=== PATIENT | female | born 1985 | race African-American/Black ===

== ENCOUNTER 2017-08-02 17:34 | Emergency (ER) | payer MEDICAID ==
[~2017-08-02] VITALS: Ht 167.6 cm; Wt 77.1 kg
--- NOTE | 2017-08-02 17:36 | NUR ---
PT BIBRA TO ER BED 10. C/O COUGH AND CONGESTION TRIGGERING BACK PAIN X TODAY. PT DENIES FALL. GOWNED AND PLACED ON MONITOR. NAD NOTED. AWAITING MD MATTA.
--- NOTE | 2017-08-02 17:50 | NUR ---
IRMA FUENTES AT BEDSIDE FOR EVAL.
--- NOTE | 2017-08-02 17:56 | NUR ---
RT AT BEDSIDE FOR BREATING TREATMENT.
[2017-08-02] MEDS ORDERED: IPRATROPIUM NEB FS 0.5 MG/2.5 ML AMPUL.NEB ONE (17:58)
[2017-08-02] MEDS ORDERED: ALBUTEROL FS 2.5 MG/3 ML VIAL.NEB ONE (17:58)
[2017-08-02] MEDS ORDERED: ALBUTEROL FS 2.5 MG/3 ML VIAL.NEB NEB ONE (18:00)
[2017-08-02] MEDS ORDERED: IPRATROPIUM NEB FS 0.5 MG/2.5 ML AMPUL.NEB NEB ONE (18:00)
[2017-08-02] MEDS ORDERED: DEXAMETHASONE SOD PHOSPHATE 4 MG/ML VIAL IM ONE (18:00)
--- NOTE | 2017-08-02 18:06 | NUR ---
RADIOLOGY AT BEDSIDE FOR CHEST XRAY.
[2017-08-02] MEDS ORDERED: DEXAMETHASONE SOD PHOSPHATE 10 MG/ML VIAL ONE (18:07)
--- NOTE | 2017-08-02 18:40 | NUR ---
PT IS REFUSING TO LEAVE ED. DEMANDING PAIN MEDICATION. IRMA FUENTES AWARE.
[2017-08-02] MEDS ORDERED: IBUPROFEN 400 MG TABLET ONE (18:42)
--- NOTE | 2017-08-02 18:51 | NUR ---
Patient discharged to home in stable condition. Written and verbal after care instructions given. Patient verbalizes understanding of instruction.
[2017-08-02 18:53] VITALS: BP 136/67
[2017-08-02] MEDS ORDERED: IBUPROFEN 400 MG TABLET PO ONE (19:00)
== END 2017-08-02 18:53 | disposition home or self-care (01) ==
LOC: EDSEX 17:36 → ER 17:36
DX: J40 Bronchitis, not specified as acute or chronic (principal); J45.909 Unspecified asthma, uncomplicated; F17.200 Nicotine dependence, unspecified, uncomplicated; F10.10 Alcohol abuse, uncomplicated
CPT/HCPCS: 71010; 94640; 96372; 99283; J1100